=== PATIENT | male | born 1975 | race Hispanic/Latino ===

== ENCOUNTER 2020-07-31 10:44 | Outpatient (CLI) | payer OTHER ==
--- NOTE | 2020-07-31 11:03 | RAD ---
EXAM: 3 views of the right shoulder HISTORY: Chronic right shoulder pain COMPARISON: None FINDINGS: There is no evidence of acute fracture or dislocation. No degenerative changes are present. No soft tissue swelling is seen. The visualized thorax is unremarkable. IMPRESSION: No evidence of acute osseous abnormality.
== END 2020-07-31 10:45 | disposition home or self-care (01) ==
LOC: BICRAD 10:44
PROVIDERS: ATTEND Family Medicine
DX: M25.511 Pain in right shoulder (principal); G89.29 Other chronic pain
CPT/HCPCS: 36415; 80053; 80061; 81001; 82043; 83036; 85025

== ENCOUNTER 2025-09-21 16:16 | Outpatient (CLI) | payer OTHER | END 2025-09-21 16:17 | disposition home or self-care (01) | LOC: SCSRAD 16:16 | DX: S69.91XA Unspecified injury of right wrist, hand and finger(s), initial encounter (principal); S62.624A Displaced fracture of middle phalanx of right ring finger, initial encounter for closed fracture ==